=== PATIENT | female | born 1995 | race Caucasian/White ===

== ENCOUNTER → 2017-05-31 | Outpatient (CLI) | payer BC | LOC: MMGSC 11:36 | PROVIDERS: ATTEND Family Medicine | DX: N39.0 Urinary tract infection, site not specified (principal) | CPT/HCPCS: 87077; 87086; 87186 ==

== ENCOUNTER 2018-07-20 15:09 | Emergency (ER) | payer BC ==
[2018-07-20 15:39] LABS: Appearance,Urine Clear (Clear); Bacteria,Urine Rare /hpf; Bilirubin,Urine Negative (Negative); Blood,Urine Moderate (Negative); Calcium Oxalate Crystals,Urine Occasional /hpf; Color,Urine Yellow; Glucose,Urine (UA) Negative (Negative); Ketones,Urine Trace (Negative); Leukocyte Esterase,Urine Trace (Negative); Mucus,Urine Many /hpf; Nitrite,Urine Negative (Negative); Protein,Urine 1+ (Negative); RBC,Urine 2 /hpf (0-5); Specific Gravity,Urine 1.037 (1.001-1.035); Squamous Epithelial Cell,Urine 3 /hpf (0-4); WBC,Urine 7 /hpf (0-5)
--- NOTE | 2018-07-20 17:03 | ED ---
General Adult HPI - General Chief complaint: Urogenital Stated complaint: UTI Time Seen by Provider: 07/20/18 15:22 Source: patient, RN notes reviewed Mode of arrival: ambulatory Limitations: no limitations - History of Present Illness Initial comments: 23-year-old female with a past medical history of urinary tract infections presents for dysuria. Patient states that over the past years she has had many urinary tract infections. States that about a week ago she started to have dysuria and was started on on an antibiotic. However 6 days ago her culture came back and she was switched to a sensitive antibiotic. States that she is still taking this but she is still having dysuria. States that she is scheduled for an outpatient ultrasound in 5 days. States that she has been seeing her primary care provider for this and has seen a urologist in the past. She denies any back pain. Denies any fevers or chills. Denies any abdominal pain.Patient has no other complaints at this time including shortness of breath, chest pain, abdominal pain, nausea or vomiting, headache, or visual changes. - Related Data Allergies Allergy/AdvReac Type Severity Reaction Status Date / Time No Known Allergies Allergy Verified 07/20/18 15:15 Review of Systems ROS Statement: Those systems with pertinent positive or pertinent negative responses have been documented in the HPI. ROS Other: All systems not noted in ROS Statement are negative. Past Medical History Past Medical History: No Reported History History of Any Multi-Drug Resistant Organisms: None Reported Past Surgical History: No Surgical Hx Reported Past Psychological History: No Psychological Hx Reported Smoking Status: Current every day smoker Past Alcohol Use History: None Reported Past Drug Use History: Marijuana General Exam Limitations: no limitations General appearance: alert, in no apparent distress Head exam: Present: atraumatic, normocephalic, normal inspection Eye exam: Present: normal appearance, PERRL, EOMI. Absent: scleral icterus, conjunctival injection ENT exam: Present: normal exam, mucous membranes moist Neck exam: Present: normal inspection, full ROM. Absent: tenderness, meningismus Respiratory exam: Present: normal lung sounds bilaterally. Absent: respiratory distress, wheezes, rales, rhonchi, stridor Cardiovascular Exam: Present: regular rate, normal rhythm, normal heart sounds. Absent: systolic murmur, diastolic murmur, rubs, gallop, clicks GI/Abdominal exam: Present: soft, normal bowel sounds. Absent: distended, tenderness, guarding, rebound, rigid Back exam: Absent: CVA tenderness (R), CVA tenderness (L) Neurological exam: Present: alert, oriented X3, CN II-XII intact Psychiatric exam: Present: normal affect, normal mood Course Vital Signs 07/20/18 07/20/18 15:12 17:15 Temperature 98.0 F 98 F Pulse Rate 64 74 Respiratory 18 16 Rate Blood Pressure 129/81 101/64 O2 Sat by Pulse 99 98 Oximetry Medical Decision Making - Medical Decision Making 23-year-old female presents to the emergency determine for a chief complaint of dysuria. States this has been ongoing for about a week. Patient has been on a sensitive antibiotic for 6 days.Patient had a Klebsiella culture obtained, sensitive to antibiotics she is currently on. Gonorrhea and chlamydia were negative tested on 07/12/2018. Urinalysis today revealed 7 white blood cells. Patient also has moderate blood however is on her period. At this time culture will be reinitiated however no evidence for a pyelonephritis. Patient likely extrinsic cystitis. Patient has already been taking Azo. At this time it is recommended to take Motrin and Tylenol instead. Patient will follow up with primary care as well as urology. Appropriate referral given. Discussed following up with culture results in 2 days. Patient has access to portal. Brenden laurent will return here she has any worsening symptoms including fevers or back pain which were discussed with her. - Lab Data Lab Results 07/20/18 07/20/18 Range/Units 15:24 15:24 Urine Color Yellow Urine Appearance Clear (Clear) Urine pH 6.0 (5.0-8.0) Ur Specific [place] 1.037 H (1.001-1.035) Urine Protein 1+ H (Negative) Urine Glucose (UA) Negative (Negative) Urine Ketones Trace H (Negative) Urine Blood Moderate H (Negative) Urine Nitrite Negative (Negative) Urine Bilirubin Negative (Negative) Urine Urobilinogen 2.0 (<2.0) mg/dL Ur Leukocyte Esterase Trace H (Negative) Urine RBC 2 (0-5) /hpf Urine WBC 7 H (0-5) /hpf Ur Squamous Epith Cells 3 (0-4) /hpf Calcium Oxalate Crystal Occasional H (None) /hpf Urine Bacteria Rare H (None) /hpf Urine Mucus Many H (None) /hpf Urine HCG, Qual Not Detected (Not Detectd) Disposition Clinical Impression: Cystitis, Urinary tract infection Disposition: HOME SELF-CARE Condition: Good Instructions (If sedation given, give patient instructions): Urinary Tract Infection in Women (ED) Additional Instructions: Please take Motrin and Tylenol for pain. Please continue antibiotic given to by primary care. Please follow up on culture results in 2 days. Follow-up with urology as well. Return here if you have any worsening symptoms. Is patient prescribed a controlled substance at d/c from ED?: No Referrals: Gracie Leonard MD [Primary Care Provider] - 1-2 days Manuel Du MD [STAFF PHYSICIAN] - 1-2 days Time of Disposition: 17:01
[2018-07-20 17:16] VITALS: BP 101/64; PULSE 74; RESP 16; TEMP 98
[2018-07-21 10:47] LABS: Chlamydia trachomatis rRNA Not detected (Not detected); Neisseria gonorrhoeae rRNA Not detected (Not detected)
== END 2018-07-20 17:15 | disposition home or self-care (01) ==
LOC: EC 15:09
DX: N30.90 Cystitis, unspecified without hematuria (principal); F17.200 Nicotine dependence, unspecified, uncomplicated
CPT/HCPCS: 81001; 81025; 87086; 87491; 87591; 99283